=== PATIENT | male | born 1960 | race African-American/Black ===

== ENCOUNTER 2019-09-29 14:30 | Inpatient (IN) | payer MEDICARE, MEDICAID ==
[~2019-09-29] VITALS: Ht 170.2 cm; Wt 88.5 kg
[2019-09-29] MEDS ORDERED: SODIUM CHLORIDE 0.9% 1,000 ML IV ONE (15:28)
[2019-09-29] MEDS ORDERED: HYDRALAZINE 20MG/ML VIAL IV ONE ×2 (15:45→17:45)
[2019-09-29 16:14] LABS: CLARITY URINE CLEAR (CLEAR); COLOR URINE YELLOW (YELLOW); HEMATOCRIT. 48.2 % (42.0-52.0); HEMOGLOBIN. 16.2 g/dL (14.0-18.0); KETONES URINE NEGATIVE (NEGATIVE); LEUKOCYTE ESTERASE URINE NEGATIVE (NEGATIVE); MEAN CORPUSCULAR HEMOGLOBIN 27.5 pg (28.0-32.0); MEAN CORPUSCULAR VOLUME 82.1 fL (80.0-94.0); MEAN PLATELET VOLUME 8.5 fl (7.4-10.4); NITRITE URINE NEGATIVE (NEGATIVE); OCCULT BLOOD URINE 2+ (NEGATIVE); PLATELET 254 x1000/uL (130-400); PROTEIN URINE 2+ (NEGATIVE); RED BLOOD CELL COUNT 5.87 mill/uL (4.7-6.1); RED CELL DISTRIBUTION WIDTH 15.3 % (11.6-14.6); UROBILINOGEN URINE 0.2 E.U./dL (0.2-1.0)
[2019-09-29 16:18] LABS: CHLORIDE 103 mEq/L (98-107)
[2019-09-29] MEDS ORDERED: CLONIDINE 0.2MG TABLET PO ONE (16:30)
[2019-09-29] MEDS ORDERED: ASPIRIN 81MG TABLET PO ONE (16:30)
[2019-09-29] MEDS ORDERED: CEFTRIAXONE 1 G PREMIX 50 ML IV ONE (17:00)
[2019-09-29] MEDS ORDERED: ACETAMINOPHEN 325MG TABLET PO ONE (17:00)
[2019-09-29 18:04] LABS: PLATELET ESTIMATE NORMAL
[2019-09-29] MEDS ORDERED: DOCUSATE SODIUM 100MG CAPSULE PO PRN (18:15)
[2019-09-29] MEDS ORDERED: HYDROCODONE/ACETAMINOPHEN 5/325MG TABLET PO PRN (18:15)
[2019-09-29] MEDS ORDERED: ACETAMINOPHEN 325MG TABLET PO PRN ×2 (18:15)
[2019-09-29] MEDS ORDERED: ONDANSETRON HCL 4MG/2ML INJ IV PRN (18:15)
[2019-09-29] MEDS ORDERED: IPRATROPIUM/ALBUTEROL 0.5-3(2.5)MG/3ML NEB HHN PRN (18:15)
[2019-09-29] MEDS ORDERED: LORAZEPAM 0.5MG TABLET PO PRN (18:15)
[2019-09-30 04:42] LABS: BASOPHILS % 0.6 % (0.0-2.0); EOSINOPHILS % 0.1 % (0.0-5.0); HEMATOCRIT. 43.1 % (42.0-52.0); HEMOGLOBIN. 14.6 g/dL (14.0-18.0); LYMPHOCYTES % 14.8 % (20.0-50.0); MEAN CORPUSCULAR HEMOGLOBIN 27.7 pg (28.0-32.0); MEAN CORPUSCULAR VOLUME 81.8 fL (80.0-94.0); MEAN PLATELET VOLUME 8.2 fl (7.4-10.4); MONOCYTES % 7.2 % (2.0-8.0); NEUTROPHILS % 77.3 % (40.0-76.0); PLATELET 248 x1000/uL (130-400); RED BLOOD CELL COUNT 5.27 mill/uL (4.7-6.1); RED CELL DISTRIBUTION WIDTH 15.5 % (11.6-14.6)
[2019-09-30] MEDS ORDERED: AMLODIPINE 5MG TABLET PO SCH (11:41)
[2019-09-30] MEDS ORDERED: LISINOPRIL 10MG TABLET PO SCH ×2 (11:41→15:00)
[2019-09-30 12:07] LABS: *AMPHETAMINES SCREEN URINE NEGATIVE (NEGATIVE); *BARBITURATES SCREEN URINE NEGATIVE (NEGATIVE); *BENZODIAZEPINES SCREEN URINE NEGATIVE (NEGATIVE); *COCAINE SCREEN URINE NEGATIVE (NEGATIVE); CANNABINOID URINE SCREEN NEGATIVE (NEGATIVE); METHADONE URINE SCREEN NEGATIVE (NEGATIVE); OPIATES URINE SCREEN NEGATIVE (NEGATIVE); PHENCYCLIDINE URINE SCREEN NEGATIVE (NEGATIVE)
[2019-09-30] MEDS ORDERED: CLONIDINE 0.1MG TABLET PO SCH (15:00)
[2019-09-30 15:22] VITALS: BP 250/154
[2019-09-30 16:00] VITALS: BP 210/101
[2019-09-30] MEDS ORDERED: CLONIDINE 0.1MG TABLET PO NR (16:30)
[2019-09-30] MEDS ORDERED: LISINOPRIL 10MG TABLET PO NR (16:30)
[2019-09-30 20:00] VITALS: BP 121/64
[2019-09-30] MEDS: DILTIAZEM HCL 90MG TABLET PO SCH (20:46)
[2019-09-30] MEDS: LISINOPRIL 20MG TABLET PO SCH (20:47)
[2019-10-01] VITALS (8 sets, daily range): BP systolic 109–175; BP diastolic 55–79
[2019-10-01] MEDS: CLONIDINE 0.2MG TABLET PO SCH ×4 (01:12→20:44)
[2019-10-01] MEDS: DILTIAZEM HCL 90MG TABLET PO SCH ×3 (05:06→17:42)
[2019-10-01] MEDS: LISINOPRIL 20MG TABLET PO SCH ×2 (10:18→20:44)
[2019-10-01] MEDS: TAMSULOSIN HCL 0.4MG SR CAPSULE PO SCH (17:43)
[2019-10-02] VITALS: BP 125/53
[2019-10-02] MEDS: DILTIAZEM HCL 90MG TABLET PO SCH ×2 (01:53→06:24)
[2019-10-02 04:00] VITALS: BP 171/80
[2019-10-02] MEDS: CLONIDINE 0.2MG TABLET PO SCH (06:24)
[2019-10-02 08:00] VITALS: BP 127/58
[2019-10-02] MEDS: TAMSULOSIN HCL 0.4MG SR CAPSULE PO SCH (09:49)
[2019-10-02] MEDS: LISINOPRIL 20MG TABLET PO SCH (09:49)
[2019-10-02] MEDS ORDERED: DILTIAZEM HCL 120MG CAPSULE CD 24HR PO SCH (11:30)
[2019-10-02 12:00] VITALS: BP 136/58
[2019-10-02] MEDS ORDERED: TRIAMTERENE/HYDROCHLOROTHIAZID 75/50MG TABLET PO SCH (12:00)
[2019-10-02] MEDS ORDERED: TAMS-11 PO (12:43)
[2019-10-02] MEDS ORDERED: DILT120C88 PO (12:43)
[2019-10-02] MEDS ORDERED: MAX PO (12:43)
[2019-10-02] MEDS ORDERED: CLON0.2T12 PO (12:43)
[2019-10-02] MEDS ORDERED: LISI-604 PO (12:43)
[2019-10-02 16:00] VITALS: BP 152/67
[2019-10-02] MEDS ORDERED: MAX25 MT (18:31)
[2019-10-02 18:38] VITALS: BP 152/67
[2019-10-02] MEDS ORDERED: CLONIDINE 0.2MG TABLET PO SCH (21:00)
== END 2019-10-02 20:20 | disposition home or self-care (01) | DRG 305 ==
LOC: ER 14:30 → MICUSO 17:34 → EDBEDREQTM 20:57 → EDBEDREQSVC 20:57 → 6WST 09-30 12:33
PROVIDERS: ADMIT Internal Medicine; ATTEND Internal Medicine
DX: I16.0 Hypertensive urgency (principal); I13.10 Hypertensive heart and chronic kidney disease without heart failure, with stage 1 through stage 4 chronic kidney disease, or unspecified chronic kidney disease; N18.2 Chronic kidney disease, stage 2 (mild); F20.9 Schizophrenia, unspecified; R33.9 Retention of urine, unspecified; Z82.49 Family history of ischemic heart disease and other diseases of the circulatory system
CPT/HCPCS: 36415; 71045; 80048; 80053; 80305; 81003; 83880; 84153; 84484; 85025; 93005; 93306; 99285; J0360; J0696; J7030; G0103

== ENCOUNTER 2024-06-25 00:56 | Emergency (ER) | payer MEDICARE, MEDICAID ==
[~2024-06-25] VITALS: Ht 172.7 cm; Wt 70.0 kg
[~2024-06-25 00:56] MED LIST: CLON0.2T12 PO; DILT120C88 PO; LISI20TA31 PO; MAX PO; MAX25 MT; TAMS-54 PO
[2024-06-25 00:57] VITALS: TEMP 37; O2SAT 98
[2024-06-25 03:49] VITALS: BP 209/94; PULSE 80; RESP 16; O2SAT 98
[2024-06-25] MEDS ORDERED: TAMS-54 MT (05:44)
== END 2024-06-25 03:49 | disposition home or self-care (01) ==
LOC: ER 00:56
DX: R33.9 Retention of urine, unspecified (principal); I10 Essential (primary) hypertension; Z79.899 Other long term (current) drug therapy; Z86.59 Personal history of other mental and behavioral disorders
CPT/HCPCS: 51702; 93005; 99284; A4606

== ENCOUNTER 2024-06-25 04:04 | Emergency (ER) | payer MEDICARE, MEDICAID ==
[~2024-06-25] VITALS: Ht 167.6 cm; Wt 77.0 kg
[2024-06-25 04:09] VITALS: O2SAT 98
[2024-06-25 04:19] VITALS: BP 267/134; PULSE 114; RESP 18; TEMP 36.8; O2SAT 98
[2024-06-25] MEDS ORDERED: TAMS-54 MT (05:44)
== END 2024-06-25 06:22 | disposition home or self-care (01) ==
LOC: ER 04:04
DX: R33.9 Retention of urine, unspecified (principal); I10 Essential (primary) hypertension; Z79.899 Other long term (current) drug therapy
CPT/HCPCS: 51702; 93005; 99284

== ENCOUNTER 2024-06-28 11:06 | Emergency (ER) | payer MEDICARE, MEDICAID ==
[~2024-06-28] VITALS: Ht 165.1 cm; Wt 80.0 kg
[~2024-06-28 11:06] MED LIST changes: +TAMS-54 MT
[2024-06-28 11:10] VITALS: O2SAT 97
[2024-06-28] MEDS ORDERED: DILT120C94 PO (11:54)
[2024-06-28 12:03] VITALS: BP 249/144; PULSE 96; RESP 16; TEMP 36.6; O2SAT 97
== END 2024-06-28 13:15 | disposition home or self-care (01) ==
LOC: ER 11:06
DX: I16.0 Hypertensive urgency (principal); I10 Essential (primary) hypertension; F20.9 Schizophrenia, unspecified; Z82.49 Family history of ischemic heart disease and other diseases of the circulatory system; Z79.899 Other long term (current) drug therapy
CPT/HCPCS: 99283; 99284